=== PATIENT | male | born 2000 | race Caucasian/White ===

== ENCOUNTER 2023-06-11 06:30 | Inpatient (IN) | payer OTHER, SELFPAY ==
[2023-06-11] VITALS (13 sets, daily range): BP systolic 102–129; BP diastolic 59–94; PULSE 100–127; RESP 18–44; TEMP 36.5–39.1; O2SAT 88–98; BMI 22.1
--- NOTE | ~2023-06-11 | XR_ITS ---
EXAMINATION: XR CHEST CLINICAL INFORMATION: Follow-up pneumonia COMPARISON: CT angiogram chest from 06/11/2023 TECHNIQUE: Frontal view of the chest was obtained. FINDINGS: Bilateral low lung volumes. Similar distribution of multifocal consolidative opacities involving the right mid lung field and bilateral lower lung mike. No pneumothorax. Trachea is midline. Cardiac mediastinal silhouette is not enlarged. No large pleural effusion. Osseous structures are intact. Soft tissues are unremarkable. XR/XR chest 1V IMPRESSION: 1. Bilateral low lung volumes. 2. Similar distribution of multifocal consolidative opacities involving the right mid lung field and bilateral lower lung mike.
--- NOTE | 2023-06-11 07:00 | ED.SOB ---
HPI - SOB/Dyspnea General Chief Complaint: Dyspnea Stated Complaint: low oxygen, sob, diagnosed yesterday w/ pneumonia Time Seen by Provider: 06/11/23 06:49 Source: patient Mode of arrival: ambulatory Limitations: no limitations History of Present Illness HPI Narrative: 23-year-old male with no significant medical history presenting with shortness of breath, ongoing for the past 2-3 days was seen at urgent care yesterday and was told he has pneumonia. Or he also reports [place], 10 hour flight. Reports he has been having cough but he feels like he is coughing to clear his throat. Denies fevers, chills, nausea, vomiting, chest pain, headache, vision changes, dizziness, weakness. Related Data Allergies Allergy/AdvReac Type Severity Reaction Status Date / Time No Known Allergies Allergy Verified 06/11/23 06:39 Review of Systems Review of Systems: Constitutional : No Weight loss, No Fever, No Chills, No Fatigue, No Malaise ENT/Mouth : No sore throat, No Rhinorrhea Eyes: No Eye Pain, No Swelling, No Redness Cardiovascular : No Chest Pain, + SOB, No Dyspnea on Exertion, No Orthopnea, No Edema, No Palpitations Respiratory : No Cough, No Sputum, No Wheezing Gastrointestinal : No Nausea, No Vomiting, No Diarrhea, No Constipation, No abdominal Pain, No Hematochezia, No Melena Genitourinary : No Dysuria, No Urinary Frequency, No Hematuria, Musculoskeletal : No joint pain, No Myalgias, No Joint Swelling Skin : No Skin Lesions, No rash Neuro : No Weakness, No Numbness, No Dizziness, No Headache Psych : No Anxiety/Panic, No Depression All other systems reviewed and are negative Yes all other systems are reviewed and are negative [facility] Past Medical History Attestation statement: The following information was validated with the patient. Source: old records reviewed and nursing notes reviewed Onset Date is defined in the Problem List Problems that require an onset date and time if occurred within 24 hrs of arrival to the ED Aortic Dissection and Rupture; Neurologic impairment; Cardiopulmonary Arrest; Endotracheal Intubation; Insertion or Replacement of Mechanical Circulatory Assist Device Social History Social History Alcohol intake: current Smoked in Last 30 Days: Yes Use of substances other than those prescribed or required for medical reasons: No Advance Directives: No Advance Directives Information Provided: No Physical Exam Vital Signs: Vital Signs: Last Vital Signs Temp 102.3 F H 06/11/23 10:41 Pulse 126 H 06/11/23 10:41 Resp 44 H 06/11/23 10:41 BP 118/75 06/11/23 10:41 Pulse Ox 97 06/11/23 10:41 O2 Del Method Nasal Cannula 06/11/23 10:41 O2 Flow Rate 2 06/11/23 10:41 BMI result Body Mass Index 22.1 hypoxia noted Appearance: Alert.? Oriented X3.? No acute distress.? Head: Normocephalic, atraumatic, no step-offs or deformities Eyes: Pupils equal, round and reactive to light.? CVS: Normal heart rate and rhythm.? Pulses normal.? Respiratory: No respiratory distress.? Breath sounds diminished throughout .? Abdomen: Soft and nontender.? Skin: Skin warm and dry.? Normal skin color.? Normal skin turgor.? Extremities: No lower extremity edema.? No calf ttp. 5/5 strength to bilateral upper and lower extremities Back: No midline tenderness, no C-spine tenderness, full range of motion, no CVA tenderness bilaterally Neuro: Oriented X 3.? No motor deficit.? No sensory deficit. CN 2-12 intact Course Reevaluation(s) Reevaluation #1: Patient is noted to have an elevated white blood cell count 19.9, chemistry low sodium 132 receiving IV fluids lactic acid elevated 2.1 again receiving IV fluids, total bilirubin 1.2 likely secondary to infection, coags demonstrating an elevated D-dimer CTA ordered to rule out PE. Flu / COVID/ RSV pending. CTA pending. Time: 08:04 Reevaluation #2: Band count of 10. CTA with multi lobar pneumonia. Indeterminate for VTE Time: 09:56 Reevaluation #3: Patient admitted Time: 10:46 Medications Administered Generic Name Dose Route Start Last Admin Trade Name Freq PRN Reason Stop Dose Admin Acetaminophen 650 mg 06/11/23 09:55 06/11/23 10:33 Acetaminophen 325 Mg Tablet PO 650 mg Q6H PRN Administration fever Azithromycin 500 mg/ Sodium 250 mls @ 125 mls/hr 06/11/23 09:09 01/08/24 09:32 Chloride IV 06/11/23 11:08 125 mls/hr ONCE ONE Administration Discontinued Medications Generic Name Dose Route Start Last Admin Trade Name Devyn PRN Reason Stop Dose Admin Ceftriaxone Sodium 1 gm/ 50 mls @ 100 mls/hr 06/11/23 06:58 06/11/23 08:43 Sodium Chloride IV 06/11/23 07:27 Infused ONCE ONE Infusion Sodium Chloride 2,041.17 mls @ 2,041.17 mls/hr 06/11/23 06:58 06/11/23 09:36 Ns 30 ml/kg infuse over 1 hr (2041.17 ml) 06/11/23 07:57 Infused IV Infusion .Q1H STA Iohexol 65 ml 06/11/23 08:53 06/11/23 08:53 Iohexol 350 Mg/Ml 100 Ml Infus..Btl IV 06/11/23 08:54 65 ml ONCE ONE Administration Methylprednisolone Sodium Succinate 125 mg 06/11/23 09:08 06/11/23 09:32 Methylprednisolone Sod Succ 125 Mg/2 Ml Vial IVPUSH 06/11/23 09:09 125 mg ONCE ONE Administration Medical Decision Making Medical Decision Making MDM Narrative: 0700 23 year old male pesents w/ sob x few days told he had PNA yesterday at urgent care. Came back from [place] three days ago PE diminished BS b/l. 92% at rest. 86% with ambulation. History and physical exam concerning for pneumonia versus pulmonary embolism due to recent travel and sudden shortness of breath. Unlikely ACS, dissection. Other differentials include viral illness, bronchitis. At this time a sepsis alert was called overhead. And a sepsis focused exam was performed at the bedside. Plan- labs, imaging Differential Diagnosis Differential Diagnoses: The differential diagnosis associated with the presentation includes History and physical exam concerning for pneumonia versus pulmonary embolism due to recent travel and sudden shortness of breath. Unlikely ACS, dissection. Other differentials include viral illness, bronchitis. Admission/Observation Consideration of admission/observation: Escalation of care including admission/observation considered Consult Healthcare Provider Management of the patient was discussed with: Hospitalist Lab Data [facility] Lab Attestation statement: I reviewed the patient's lab results. 06/11/23 07:32 06/11/23 07:32 Labs: Lab Results 01/08/24 01/08/24 01/08/24 Range/Units 07:32 08:52 09:50 WBC 19.9 H (4.8-10.8) X10*3/uL RBC 4.10 L (4.60-5.80) X10*6/uL Hgb 12.9 L (14.0-18.0) g/dl Hct 36.3 L (42.0-52.0) % MCV 88.5 (80.0-98.0) fL MCH 31.5 (27.0-33.0) pg MCHC 35.5 (31.0-36.0) g/dl RDW 12.9 (11.0-16.0) % Plt Count 332 (160-400) X10*3/uL MPV 9.3 L (9.4-12.4) fL Immature Gran % (Auto) Cancelled Neut % (Auto) Cancelled Lymph % (Auto) Cancelled [place] % (Auto) Cancelled Eos % (Auto) Cancelled Baso % (Auto) Cancelled Lymph # (Auto) Cancelled [place] # (Auto) Cancelled Eos # (Auto) Cancelled Baso # (Auto) Cancelled Abs Immat Gran (auto) Cancelled Absolute Neuts (auto) Cancelled Absolute Nucleated RBC 0.000 (0.0-0.012) X10*3/uL Nucleated RBC % (auto) 0.0 (0.0-0.2) /100WBC Neutrophils % (Manual) 85 H (45-73) % Band Neutrophils % 10 H (3-5) % Lymphocytes % (Manual) 5 L (20-40) % Abs Neuts (Manual) 18.9 H (2.0-8.3) X10*3/uL Lymphocytes # (Manual) 1.0 L (1.2-4.9) X10*3/uL Toxic Vacuolation PRESENT Dohle Bodies PRESENT Platelet Estimate NORMAL (NORMAL) Plt Morphology Comment NORMAL RBC Morphology NOTED Spherocytes 1+ (0-2) /OIF [place]ale Cells 3+ (>5) /OIF Acanthocytes (Spur) 3+ (>5) /OIF Schistocytes 1+ (0-2) /OIF D-Dimer High Sensitivty 1191 NG/ML Sodium 132 L (135-145) mmol/L Potassium 3.7 (3.3-5.1) mmol/L Chloride 98 (96-108) mmol/L Carbon Dioxide 24 (22-29) mmol/L Anion Gap 14 (12-20) BUN 9 (9-16) mg/dL Creatinine 0.74 (0.5-1.4) mg/dL Estim Creat Clear Calc 146.8 Estimated GFR > 60 Random Glucose 104 (60-115) mg/dL Lactic Acid 2.1 H* (0.5-2.0) mmol/L Lactic Acid F/U @ 2Hr 1.7 (0.5-2.0) mmol/L Calcium 9.1 (8.4-10.2) mg/dL Magnesium 1.6 (1.6-2.6) mg/dL Total Bilirubin 1.2 H (0.0-1.0) mg/dL AST 21 (5-37) U/L ALT 15 (0-40) U/L Alkaline Phosphatase 99 (39-117) U/L Total Protein 5.9 L (6.5-8.0) g/dL Albumin 2.9 L (3.5-5.0) g/dL Urine Color Yellow Urine Appearance Clear Urine pH 7.0 (5.0-9.0) Ur Specific [place] <= 1.005 (1.005-1.025) Urine Protein Negative (Neg-Trace) mg/dL Urine Glucose (UA) Negative (Negative) mg/dL Urine Ketones Negative (Negative) mg/dL Urine Blood Negative (Negative) Urine Nitrite Negative (Negative) Ur Leukocyte Esterase Negative (Negative) Influenza Type A (PCR) NEGATIVE (Negative) Influenza Type B (PCR) NEGATIVE (Negative) RSV RNA Qual (PCR) NEGATIVE (Negative) SARS-CoV-2 RNA (RT-PCR) NEGATIVE (Negative) Independent Interpretation I performed an independent interpretation of an: EKG ( Ventricular rate of 121, SC normal, QRS normal, QT / QTC normal. EKG sinus tachycardia no ST elevations or inversions concerning for ischemia.) and CT Scan ( CT/CT angio chest PE protocol IMPRESSION: Suboptimal contrast bolus timing. No central or large segmental pulmonary embolus. Severe multifocal pneumonia. Possibly reactive mediastinal and bilateral hilar lymphadenopathy. Follow-up until resolution is advised. Hepatic steatosis. VTE: indeterm) Radiology Impression Discussion of test interpretation with radiology: I have reviewed the radiologist's reading. Prescription Management I considered prescription management with: Antibiotic Critical Care Time Critical Care Time Critical Care Time: Yes Total Critical Care Time: 45 Attestation: I attest to this time spent taking care of the patient, obtaining history, physical, reviewing labs, imaging, speaking to my attending, speaking to specialist. Discharge Plan Discharge Clinical Impression: Sepsis due to pneumonia Patient Disposition: Admitted As Inpatient
--- NOTE | 2023-06-11 07:10 | PC.NURSE ---
pt walked with pulseox. Pt came down to 86% while walking. Pt put on 2L of O2, O2 back up to 92%
--- NOTE | 2023-06-11 07:41 | PC.NURSE ---
Pt is a&ox4 coming in with sob for a couple of days with feversand chills. Pt reports being seen at urgent care yesterday and being diagnosed with PNA. Pt desated to 86% on RA upon ambulation, was placed on 2LT nc and is sating at 96%. Pt denies pain. Pt speaking in clear full sentences, crackles heard on lower bases of left side of lung. BC and labs sent. 20 left forearm.
[2023-06-11 07:42] LABS: Hematocrit 36.3 % (42.0-52.0); Hemoglobin 12.9 g/dl (14.0-18.0); Mean Corpuscular HGB Conc 35.5 g/dl (31.0-36.0); Mean Corpuscular Hemoglobin 31.5 pg (27.0-33.0); Mean Corpuscular Volume 88.5 fL (80.0-98.0); Mean Platelet Volume 9.3 fL (9.4-12.4); Platelet Count 332 X10*3/uL (160-400); Red Cell Distribution Width 12.9 % (11.0-16.0); White Blood Count 19.9 X10*3/uL (4.8-10.8)
[2023-06-11 07:48] LABS: D Dimer High Sensitivity 1191 NG/ML
[2023-06-11 07:58] LABS: Alanine Aminotransferase 15 U/L (0-40); Albumin Level 2.9 g/dL (3.5-5.0); Alkaline Phosphatase 99 U/L (39-117); Anion Gap 14 (12-20); Aspartate Amino Transferase 21 U/L (5-37); Bilirubin Total 1.2 mg/dL (0.0-1.0); Blood Urea Nitrogen 9 mg/dL (9-16); Calcium 9.1 mg/dL (8.4-10.2); Carbon Dioxide 24 mmol/L (22-29); Chloride 98 mmol/L (96-108); Creatinine Clr Calc Pharmacy 146.8; Estimated Glomerular Filt Rate > 60; Glucose Random 104 mg/dL (60-115); Magnesium 1.6 mg/dL (1.6-2.6); Potassium 3.7 mmol/L (3.3-5.1); Sodium 132 mmol/L (135-145); Total Protein 5.9 g/dL (6.5-8.0)
[2023-06-11 08:00] LABS: Lactic Acid 2.1 mmol/L (0.5-2.0)
[2023-06-11 08:35] LABS: Influenza A PCR NEGATIVE (Negative); Influenza B PCR NEGATIVE (Negative); Resp Syncy Virus RNA Qual PCR NEGATIVE (Negative); SARS COV2 PCR INHOUSE NEGATIVE (Negative)
[2023-06-11 08:37] LABS: Neutrophils Percent Manual 85 % (45-73)
[2023-06-11 08:39] LABS: Band Neutrophils Percent 10 % (3-5); Lymphocytes Percent Manual 5 % (20-40); Neutrophils Absolute Manual 18.9 X10*3/uL (2.0-8.3)
[2023-06-11 08:40] LABS: Acanthocytes 3+ (>5) /OIF; Burr Cells 3+ (>5) /OIF; Dohle Bodies PRESENT; Platelet Estimate NORMAL (NORMAL); Platelet Morphology Comment NORMAL; RBC Morphology NOTED; Schistocytes 1+ (0-2) /OIF; Spherocytes 1+ (0-2) /OIF; Toxic Vacuolation PRESENT
[2023-06-11 09:38] LABS: Reflex Lactate? Lactic Acid Added
--- NOTE | 2023-06-11 09:48 | PM.IMHP ---
History of Present Illness Date of Service: 06/11/23 Chief Complaint: sob, fever 23M PMH ADHD, presented with fever, sob. Patient traveled to [place] on 06/03/2024, several days later started to have flu-like symptoms. Myalgias, fevers, fatigue. Flew home and continued to be symptomatic. Started to have dry cough, shortness of breath. Pulse ox at home was in the mid 80s so came to ED. denies rash, abdominal pain, nausea vomiting diarrhea. In ED noted to have elevated WBCs, tachycardia, hypoxia. CTA showed bilateral pneumonia. Review of Systems Review of Systems: Yes all other systems are reviewed and are negative PMFSH Social History Alcohol intake: current Smoked in Last 30 Days: Yes Use of substances other than those prescribed or required for medical reasons: No Advance Directives: No Advance Directives Information Provided: No Meds Allergies Allergy/AdvReac Type Severity Reaction Status Date / Time No Known Allergies Allergy Verified 06/11/23 06:39 Active Medications: Current Medications Azithromycin 500 mg/ Sodium (Chloride) 250 mls @ 125 mls/hr IV ONCE ONE Stop: 06/11/23 11:08 Last Admin: 06/11/23 09:32 Dose: 125 mls/hr Physical Exam Vital Signs and Narrative: Vital Signs: Last Vital Signs Temp 98.5 F 06/11/23 09:37 Pulse 119 H 06/11/23 09:37 Resp 20 06/11/23 09:37 BP 113/94 H 06/11/23 09:37 Pulse Ox 95 06/11/23 09:37 O2 Del Method Nasal Cannula 06/11/23 09:37 O2 Flow Rate 1 06/11/23 09:37 BMI result Body Mass Index 22.1 General: AO X 3, dyspneic Resp: Crackles bilateral, some accessory muscles used CVS: S1,S2,RRR GI: soft, non tender, non distended Neuro: motor grossly intact, alert Psych: appropriate affect, appropriate insight Results Labs 06/11/23 07:32 06/11/23 07:32 Labs: Laboratory Results - last 24 hr 06/11/23 07:32 MCV 88.5 MCH 31.5 MCHC 35.5 RDW 12.9 Plt Count 332 MPV 9.3 L Immature Gran % (Auto) Cancelled Neut % (Auto) Cancelled Lymph % (Auto) Cancelled [place] % (Auto) Cancelled Eos % (Auto) Cancelled Baso % (Auto) Cancelled Lymph # (Auto) Cancelled [place] # (Auto) Cancelled Eos # (Auto) Cancelled Baso # (Auto) Cancelled Abs Immat Gran (auto) Cancelled Absolute Neuts (auto) Cancelled Absolute Nucleated RBC 0.000 Nucleated RBC % (auto) 0.0 Neutrophils % (Manual) 85 H Band Neutrophils % 10 H Lymphocytes % (Manual) 5 L Abs Neuts (Manual) 18.9 H Lymphocytes # (Manual) 1.0 L Toxic Vacuolation PRESENT Dohle Bodies PRESENT Platelet Estimate NORMAL Plt Morphology Comment NORMAL RBC Morphology NOTED Spherocytes 1+ (0-2) [place] Cells 3+ (>5) Acanthocytes (Spur) 3+ (>5) Schistocytes 1+ (0-2) D-Dimer High Sensitivty 1191 Anion Gap 14 Estim Creat Clear Calc 146.8 Estimated GFR > 60 Random Glucose 104 Lactic Acid 2.1 H* Calcium 9.1 Magnesium 1.6 Total Bilirubin 1.2 H AST 21 ALT 15 Alkaline Phosphatase 99 Total Protein 5.9 L Albumin 2.9 L Influenza Type A (PCR) NEGATIVE Influenza Type B (PCR) NEGATIVE RSV RNA Qual (PCR) NEGATIVE SARS-CoV-2 RNA (RT-PCR) NEGATIVE Imaging Radiologist's Impressions: Impressions Chest CTA 06/11/23 08:51 IMPRESSION: Suboptimal contrast bolus timing. No central or large segmental pulmonary embolus. Severe multifocal pneumonia. Possibly reactive mediastinal and bilateral hilar lymphadenopathy. Follow-up until resolution is advised. Hepatic steatosis. VTE: indeterminate Assessment and Plan (1) Pneumonia: Status: Acute Plan 23M PMH adhd presented with sob, fever Sepsis and acute hypoxic respiratory failure secondary to bilateral pneumonia inpatient with recent travel Empiric ceftriaxone and azithromycin Follow-up respiratory viral panel, HIV, id eval Wean O2 as tolerated Full code Patient with sepsis and hypoxia requiring O2 supplementation and IV antibiotics, due to severity of his illness he is likely to require at least 2 midnights inpatient Quality Stroke Does the patient have a stroke diagnosis?: No VTE Prior VTE?: No VTE Risk Level:: Medical - low VTE Device Contraindication: Treatment Not Indicated VTE Drug Contraindication: Treatment Not Indicated
--- NOTE | 2023-06-11 10:46 | PC.NURSE ---
Vs change inpatient provider Jose Narvaez aware and at bedside.
--- NOTE | 2023-06-11 11:36 | PHA.MEDREC ---
Pharmacy Consult ? Medication Reconciliation Pharmacy has completed the medication reconciliation. spoke with patient to confirm medications. Reports that he has not taken his adderall in a few days due to feeling under the weather.
--- NOTE | 2023-06-11 13:08 | PC.NURSE ---
Pt ambulated to restroom and desated to 82% RA[facility]
[2023-06-11] MEDS: Acetaminophen 325 MG TABLET 650 MG PO ×2 (16:32→22:24)
[2023-06-11] MEDS: traZODone HCL 50 MG TABLET PO (21:07)
--- NOTE | 2023-06-11 22:17 | W.PM.IDCN ---
History of Present Illness Data of Consult Service Date: 06/11/23 Requesting physician: Jose Narvaez Primary Care Provider: Unknown Physician HPI Reason for consult: pneumonia He presents with cough and chills. He has hypoxia likely last three to four days. Three days ago he arrived from [place] where he was staying with a friend for four days. He is not aware of anyone ill. He is MSM and doesnt appear to be on Prep but denies HIV. CXR/CT atypical pneumonia infiltrates in bat wing distribution. Review of Systems Review of Systems: Yes all other systems are reviewed and are negative PMFSH Family History Family history: reviewed and not pertinent Social History Social History Household Members: Family Housing: House Do you presently have visiting nurse or other home services: No Alcohol intake: current Patient Tobacco Use Status: Never used Tobacco Smoked in Last 30 Days: Yes e-Cigarette/Vaping Use: Currently Using Frequency of e-Cigarette/Vaping Use: daily Use of substances other than those prescribed or required for medical reasons: No Have you been hit, kicked, punched, or otherwise hurt by someone within the past year? If so, by whom?: No Do you feel safe in your current relationship?: Yes Is there a partner from a previous relationship who is making you feel unsafe now?: No Are you made to feel afraid or neglected: No Advance Directives: No Advance Directives Information Provided: No Do you have thoughts of harming others: None Do you have a plan to hurt others: No Plan Recently lost weight without trying: No Eating poorly because of decreased appetite: Yes Nutrition Risks: No Nutritional Risk Poor oral hygiene: No Meds Allergies Allergy/AdvReac Type Severity Reaction Status Date / Time No Known Allergies Allergy Verified 06/11/23 06:39 Active Medications: Current Medications Acetaminophen (Acetaminophen 325 Mg Tablet) 650 mg PO Q6H PRN PRN Reason: fever Last Admin: 06/11/23 16:32 Dose: 650 mg Amphetamine/Dextroamphetamine (Amphetamine Mixed Salts 10 Mg Tablet) 10 mg PO DAILY@1800 PRN PRN Reason: Drowsiness Amphetamine/Dextroamphetamine (Amphetamine Mixed Salts 20 Mg Tablet) 20 mg PO BID [place] Last Admin: 06/11/23 21:08 Dose: Not Given Fluoxetine HCl (Fluoxetine Hcl 20 Mg Capsule) 40 mg PO DAILY [facility] Ceftriaxone Sodium 1 gm/ (Sodium Chloride) 50 mls @ 100 mls/hr IV Q24H [facility] Doxycycline Hyclate 100 mg/ (Sodium Chloride) 250 mls @ 166.67 mls/hr IV Q12H [facility] Last Infusion: 06/11/23 13:50 Dose: Infused Fluconazole (Diflucan) 200 mg in 100 mls @ 100 mls/hr IV Q24H [facility] Last Infusion: 06/11/23 13:50 Dose: Infused Trimethoprim/Sulfamethoxazole (340 mg/ Dextrose) 521.25 mls @ 225 mls/hr IV Q8H [facility] Prednisone (Prednisone 20 Mg Tablet) 40 mg PO DAILY [facility] Sodium Chloride (0.9 % Sodium Chloride Flush 3 Ml Syringe) 3 ml IVFLUSH QSHIFT [facility] Last Admin: 06/11/23 16:25 Dose: 3 ml Trazodone HCl (Trazodone Hcl 50 Mg Tablet) 50 mg PO BEDTIME [facility] Last Admin: 06/11/23 21:07 Dose: 50 mg Home Medications Medication Instructions Recorded Confirmed Last Taken Type dextroamphetamine-amphetamine 10 1 tab PO DAILY@1800 PRN Drowsiness 06/11/23 06/11/23 Unknown History mg tablet dextroamphetamine-amphetamine 20 1 tab PO BID 06/11/23 06/11/23 Unknown History mg tablet fluoxetine 40 mg capsule 40 mg PO DAILY 06/11/23 06/11/23 Unknown History guaifenesin 1,200 mg tablet, 1,200 mg PO Q12H PRN Cough 06/11/23 06/11/23 Unknown History extended release 12 hr (Mucinex) trazodone 50 mg tablet 50 mg PO BEDTIME 06/11/23 06/11/23 Unknown History Physical Exam Vital Signs: Vital Signs: Last Vital Signs Temp 97.7 F 06/11/23 19:16 Pulse 100 06/11/23 19:16 Resp 18 06/11/23 19:16 BP 123/70 06/11/23 19:16 Pulse Ox 98 06/11/23 19:16 O2 Del Method Nasal Cannula 06/11/23 19:16 O2 Flow Rate 2 06/11/23 19:16 BMI result Body Mass Index 22.1 Const: General: cooperative HEENT: Head: Yes normal to inspection Face and sinus: Yes normal facial exam Mouth: Normal oral and palatal mucosa present Teeth and gingiva: dentition normal Eyes: General: appearance normal, both eyes and all related structures Pupils: Equal, round and reactive pupils present Resp: Effort & Inspection: decreased respiratory effort Cardio: Rate: regular rate Rhythm: regular rhythm GI: Palpation (GI): Soft to palpation and nontender : General: Yes no CVA tenderness Back/Spine/Pelvis: Back: no CVA tenderness Skin: General skin exam: no rashes or lesions noted Neuro: General: moves all extremities Cranial nerves: Yes Equal, round and reactive pupils present Extrem: General: Yes normal to inspection Psych: Appearance: grossly normal Results Labs 06/11/23 07:32 06/11/23 07:32 Labs: Short CBC 06/11/23 Range/Units 07:32 WBC 19.9 H (4.8-10.8) X10*3/uL Hgb 12.9 L (14.0-18.0) g/dl Hct 36.3 L (42.0-52.0) % Plt Count 332 (160-400) X10*3/uL BMP 06/11/23 07:32 Sodium 132 L Potassium 3.7 Chloride 98 Carbon Dioxide 24 BUN 9 Creatinine 0.74 Calcium 9.1 Liver Function 06/11/23 Range/Units 07:32 Total Bilirubin 1.2 H (0.0-1.0) mg/dL AST 21 (5-37) U/L ALT 15 (0-40) U/L Alkaline Phosphatase 99 (39-117) U/L Albumin 2.9 L (3.5-5.0) g/dL Urine 06/11/23 Range/Units 08:52 Urine Color Yellow Urine Appearance Clear Urine pH 7.0 (5.0-9.0) Ur Specific [place] <= 1.005 (1.005-1.025) Urine Protein Negative (Neg-Trace) mg/dL Urine Glucose (UA) Negative (Negative) mg/dL Microbiology Microbiology Results: Microbiology 06/11/23 07:32 Blood - Venous Blood Culture - Preliminary Prelim: GPC Gram Stain only 06/11/23 07:32 Blood - Venous Blood Culture - Preliminary Prelim: GPC Gram Stain only Assessment and Plan (1) Pneumonia: Status: Acute Foreign travel may or may not be relevant. He has risk in [place] from TB,hantavirus,Legionella and paracoccidiodes or coccidiomycosis,cryptococcus or histoplasmosis. He also may have nocardia, strep pneuonia or MRSA. HIV is concern Plan Nasal swab MRSA. Ceftriaxone, Doxycycline,antifungal and Bactrim PJP doses with steroids. Check HIV test.
[2023-06-12 03:07] VITALS: BP 114/61; PULSE 93; RESP 16; TEMP 36.6; O2SAT 94
[2023-06-12 07:26] LABS: Hematocrit 34.7 % (42.0-52.0); Hemoglobin 12.3 g/dl (14.0-18.0); Mean Corpuscular HGB Conc 35.4 g/dl (31.0-36.0); Mean Corpuscular Hemoglobin 31.3 pg (27.0-33.0); Mean Corpuscular Volume 88.3 fL (80.0-98.0); Mean Platelet Volume 9.9 fL (9.4-12.4); Platelet Count 392 X10*3/uL (160-400); Red Blood Count 3.93 X10*6/uL (4.60-5.80); Red Cell Distribution Width 13.1 % (11.0-16.0); White Blood Count 23.2 X10*3/uL (4.8-10.8)
[2023-06-12 07:29] VITALS: BP 115/62; PULSE 92; RESP 20; TEMP 36.6; O2SAT 96
[2023-06-12 07:41] LABS: Anion Gap 15 (12-20); Blood Urea Nitrogen 13 mg/dL (9-16); Calcium 8.9 mg/dL (8.4-10.2); Carbon Dioxide 23 mmol/L (22-29); Chloride 106 mmol/L (96-108); Creatinine Clr Calc Pharmacy 167.1; Estimated Glomerular Filt Rate > 60; Glucose Fasting 129 mg/dL (60-99); Potassium 3.5 mmol/L (3.3-5.1); Sodium 140 mmol/L (135-145)
[2023-06-12 08:00] LABS: HIV AB/AG Nonreactive (Nonreactive); HIV Num 1 0.04 S/CO (0.00-0.99)
[2023-06-12] MEDS: predniSONE 20 MG TABLET 40 MG PO (08:44)
[2023-06-12] MEDS: FLUoxetine HCl 20 MG CAPSULE 40 MG PO (08:44)
[2023-06-12] MEDS: guaiFENesin DM 100/10/5 ML 5 ML SYRUP PO ×4 (08:44→21:45)
--- NOTE | 2023-06-12 08:58 | HO.PM.IMPN ---
Subjective Subjective Date of Service: 06/12/23 Interval History: starting to feel better Physical Exam Vital Signs: Vital Signs: Last Vital Signs Temp 98 F 06/12/23 07:29 Pulse 92 06/12/23 07:29 Resp 20 06/12/23 07:29 BP 115/62 06/12/23 07:29 Pulse Ox 96 06/12/23 07:29 O2 Del Method Nasal Cannula 06/12/23 07:29 O2 Flow Rate 2 06/12/23 07:29 BMI result Body Mass Index 22.1 General: AO X 3, no acute distress Resp: Crackles bilateral, no accessory muscles used CVS: S1,S2,RRR GI: soft, non tender, non distended Neuro: motor grossly intact, alert Psych: appropriate affect, appropriate insight Objective Data Active Medications Acetaminophen (Acetaminophen 325 Mg Tablet) 650 mg PO Q6H PRN PRN Reason: fever Last Admin: 06/11/23 22:24 Dose: 650 mg Documented By: CHRISTIANO Amphetamine/Dextroamphetamine (Amphetamine Mixed Salts 10 Mg Tablet) 10 mg PO DAILY@1800 PRN PRN Reason: Drowsiness Amphetamine/Dextroamphetamine (Amphetamine Mixed Salts 20 Mg Tablet) 20 mg PO BID [facility] Last Admin: 06/12/23 08:44 Dose: Not Given Documented By: PRERNA Non-Admin Reason: Patient Refused Fluoxetine HCl (Fluoxetine Hcl 20 Mg Capsule) 40 mg PO DAILY [facility] Last Admin: 06/12/23 08:44 Dose: 40 mg Documented By: PRERNA Guaifenesin/Dextromethorphan (Guaifenesin Dm 100/10/5 Ml 5 Ml Syrup) 5 ml PO Q4H PRN PRN Reason: Cough Last Admin: 06/12/23 08:44 Dose: 5 ml Documented By: PRERNA Doxycycline Hyclate 100 mg/ (Sodium Chloride) 250 mls @ 166.67 mls/hr IV Q12H [facility] Last Infusion: 06/12/23 01:14 Dose: Infused Documented By: HATTIE Ceftriaxone Sodium 2 gm/ (Sodium Chloride) 50 mls @ 100 mls/hr IV Q24H [facility] Prednisone (Prednisone 20 Mg Tablet) 40 mg PO DAILY [facility] Last Admin: 06/12/23 08:44 Dose: 40 mg Documented By: PRERNA Sodium Chloride (0.9 % Sodium Chloride Flush 3 Ml Syringe) 3 ml IVFLUSH QSHIFT [facility] Last Admin: 06/12/23 08:46 Dose: 3 ml Documented By: PRERNA Trazodone HCl (Trazodone Hcl 50 Mg Tablet) 50 mg PO BEDTIME [facility] Last Admin: 06/11/23 21:07 Dose: 50 mg Documented By: CHRISTIANO Labs 06/12/23 05:52 06/12/23 05:52 Labs: Laboratory Results - last 24 hr 06/11/23 06/11/23 06/11/23 08:52 09:50 10:31 MCV MCH MCHC RDW Plt Count MPV Absolute Nucleated RBC Nucleated RBC % (auto) Anion Gap Estim Creat Clear Calc Estimated GFR Fasting Glucose Lactic Acid F/U @ 2Hr 1.7 Calcium Urine Color Yellow Urine Appearance Clear Urine pH 7.0 Ur Specific Wren <= 1.005 Urine Protein Negative Urine Glucose (UA) Negative Urine Ketones Negative Urine Blood Negative Urine Nitrite Negative Ur Leukocyte Esterase Negative Respiratory Panel Nash See Note Adenovirus (Rapid PCR) Not Detected B.pert (TEM-PCR) Not Detected B.parapertussis DNA PCR Not Detected C. pneumoniae DNA (PCR) Not Detected Coronavirus OC43 (PCR) Not Detected Coronavirus HKU1 (PCR) Not Detected Coronavirus 229E (PCR) Not Detected Coronavirus NL63 (PCR) Not Detected HIV 1&2 Ab/P24 Ag 4thGn Human Metapneumovir PCR Not Detected Influenza A (RT-PCR) Not Detected Influenza B (RT-PCR) Not Detected M. pneumoniae (PCR) Not Detected Parainfluenza 1 (PCR) Not Detected Parainfluenza 2 (PCR) Not Detected Parainfluenza 3 (PCR) Not Detected Parainfluenza 4 (PCR) Not Detected RSV (PCR) Not Detected Entero/Rhino (PCR) Not Detected SARS-CoV-2 RNA (RT-PCR) Not Detected 06/12/23 05:52 MCV 88.3 MCH 31.3 MCHC 35.4 RDW 13.1 Plt Count 392 MPV 9.9 Absolute Nucleated RBC 0.000 Nucleated RBC % (auto) 0.0 Anion Gap 15 Estim Creat Clear Calc 167.1 Estimated GFR > 60 Fasting Glucose 129 H Lactic Acid F/U @ 2Hr Calcium 8.9 Urine Color Urine Appearance Urine pH Ur Specific Wren Urine Protein Urine Glucose (UA) Urine Ketones Urine Blood Urine Nitrite Ur Leukocyte Esterase Respiratory Panel Nash Adenovirus (Rapid PCR) B.pert (TEM-PCR) B.parapertussis DNA PCR C. pneumoniae DNA (PCR) Coronavirus OC43 (PCR) Coronavirus HKU1 (PCR) Coronavirus 229E (PCR) Coronavirus NL63 (PCR) HIV 1&2 Ab/P24 Ag 4thGn Nonreactive Human Metapneumovir PCR Influenza A (RT-PCR) Influenza B (RT-PCR) M. pneumoniae (PCR) Parainfluenza 1 (PCR) Parainfluenza 2 (PCR) Parainfluenza 3 (PCR) Parainfluenza 4 (PCR) RSV (PCR) Entero/Rhino (PCR) SARS-CoV-2 RNA (RT-PCR) Microbiology Microbiology Results: Microbiology 06/11/23 07:32 Blood Culture - Preliminary Blood - Venous Prelim: GPC Gram Stain only 06/11/23 07:32 Blood Culture - Preliminary Blood - Venous Prelim: GPC Gram Stain only Assessment and Plan (1) Pneumonia: Status: Acute Plan 23M PMH adhd presented with sob, fever Sepsis and acute hypoxic respiratory failure secondary to bilateral pneumonia complicated by GPC in chains bacteremia continue ceftriaxone and doxy hiv negative, will dc diflucan and bactrim resp viral panel negative follow up cultures Wean O2 as tolerated Full code reason for continued hospitalization:awaiting cultures Quality Stroke Does the patient have a stroke diagnosis?: No VTE Prior VTE?: No VTE Risk Level:: Medical - low VTE Device Contraindication: Treatment Not Indicated VTE Drug Contraindication: Treatment Not Indicated
--- NOTE | 2023-06-12 13:18 | MHC.CM.PN ---
CM MET WITH PT AND MOTHER AT BEDSIDE PT LIVES ALONE IN [place] HE IS HERE VISITING FAMILY WHILE HE RECOVERS HE SAYS HE HAS NO DME OR SERVICES HE DOES HAVE A PCP BACK HOME PER HIS REPORT PT DECLINES TO COMPLETE A HCP DCP: RETURN TO FAMILY HOME VIA PRIVATE TRANSPORT
[2023-06-12] MEDS: Acetaminophen 325 MG TABLET 650 MG PO ×2 (13:48→21:45)
[2023-06-12 15:04] VITALS: BP 118/66; PULSE 84; RESP 18; TEMP 36.4; O2SAT 97
[2023-06-12 18:44] VITALS: BP 120/71; PULSE 93; RESP 18; TEMP 36.3; O2SAT 97
[2023-06-12] MEDS: traZODone HCL 50 MG TABLET PO (21:43)
[2023-06-13] VITALS (9 sets, daily range): BP systolic 114–130; BP diastolic 70–77; PULSE 77–100; RESP 16–19; TEMP 36.1–36.6; O2SAT 87–99
[2023-06-13] MEDS: guaiFENesin DM 100/10/5 ML 5 ML SYRUP PO ×4 (03:29→21:57)
--- NOTE | 2023-06-13 03:54 | PC.NURSE ---
At 0345 pt's O2 sat was 88% at 1L. Had pt sit up and do some deep breathing and O2 stayed at 88%. We were not able to get it to 90% until we put O2 at 4L. Dr. Zain Franco aware.
[2023-06-13 06:28] LABS: Hematocrit 31.1 % (42.0-52.0); Hemoglobin 11.2 g/dl (14.0-18.0); Mean Corpuscular Hemoglobin 31.5 pg (27.0-33.0); Mean Corpuscular Volume 87.4 fL (80.0-98.0); Mean Platelet Volume 9.6 fL (9.4-12.4); NRBC Pct Auto 0.1 /100WBC (0.0-0.2); Platelet Count 397 X10*3/uL (160-400); Red Blood Count 3.56 X10*6/uL (4.60-5.80); Red Cell Distribution Width 13.2 % (11.0-16.0); White Blood Count 15.6 X10*3/uL (4.8-10.8)
[2023-06-13 06:31] LABS: Alanine Aminotransferase 34 U/L (0-40); Albumin Level 2.5 g/dL (3.5-5.0); Alkaline Phosphatase 73 U/L (39-117); Anion Gap 12 (12-20); Aspartate Amino Transferase 45 U/L (5-37); Bilirubin Direct 0.1 mg/dL (0.0-0.5); Bilirubin Total 0.5 mg/dL (0.0-1.0); Blood Urea Nitrogen 16 mg/dL (9-16); Calcium 8.2 mg/dL (8.4-10.2); Carbon Dioxide 23 mmol/L (22-29); Chloride 108 mmol/L (96-108); Creatinine Clr Calc Pharmacy 169.8; Estimated Glomerular Filt Rate > 60; Glucose Fasting 103 mg/dL (60-99); Potassium 3.3 mmol/L (3.3-5.1); Sodium 140 mmol/L (135-145)
[2023-06-13] MEDS: Albuterol Sulfate (0.083%) 2.5 MG/3 ML VIAL.NEB INHALE ×3 (08:20→18:50)
[2023-06-13] MEDS: FLUoxetine HCl 20 MG CAPSULE 40 MG PO (08:24)
[2023-06-13] MEDS: Amphetamine Mixed Salts 20 MG TABLET PO ×2 (08:24→21:30)
[2023-06-13] MEDS: cefTRIAXone sodium 2 GM in 0.9 % Sodium Chloride 50 ML IV (09:54)
--- NOTE | 2023-06-13 11:28 | P.PNIM_ITS ---
Subjective Subjective Date of Service: 06/13/23 Interval History: Seen and evaluated this morning Hypoxic when weaning down O2 denies any fever or chills Review of Systems Review of Systems: Yes all other systems are reviewed and are negative Physical Exam 2 Vital Signs: Vital Signs: Last Vital Signs Temp 97.1 F 06/13/23 07:20 Pulse 89 06/13/23 08:16 Resp 16 06/13/23 08:16 BP 114/72 06/13/23 07:20 Pulse Ox 94 06/13/23 07:20 O2 Del Method Nasal Cannula 06/13/23 07:20 O2 Flow Rate 4 06/13/23 07:20 BMI result Body Mass Index 22.1 Const: Other: Constitutional : Awake, interactive, not in distress Neck : Normal inspection, Supple Cardiovascular : RRR, no JVP, no lower extremity edema Respiratory : fair bilateral air entry, no crackles, wheezes or rhonchi, On O2 supplement. Gastrointestinal: soft, lax, Normal bowel sounds, Non tender Skin : Warm, Dry Neurological : Alert & oriented x3, No focal deficit Objective Data Active Medications Acetaminophen (Acetaminophen 325 Mg Tablet) 650 mg PO Q6H PRN PRN Reason: fever Last Admin: 06/12/23 21:45 Dose: 650 mg Documented By: CHACHO Albuterol Sulfate (Albuterol Sulfate (0.083%) 2.5 Mg/3 Ml Vial.Neb) 2.5 mg INHALE Q4H PRN PRN Reason: Shortness of Breath/Wheezing Last Admin: 06/13/23 08:20 Dose: 2.5 mg Documented By: JONATAN Amphetamine/Dextroamphetamine (Amphetamine Mixed Salts 10 Mg Tablet) 10 mg PO DAILY@1800 PRN PRN Reason: Drowsiness Amphetamine/Dextroamphetamine (Amphetamine Mixed Salts 20 Mg Tablet) 20 mg PO BID [facility] Last Admin: 06/13/23 08:24 Dose: 20 mg Documented By: HOWIE Fluoxetine HCl (Fluoxetine Hcl 20 Mg Capsule) 40 mg PO DAILY [facility] Last Admin: 06/13/23 08:24 Dose: 40 mg Documented By: HOWIE Guaifenesin/Dextromethorphan (Guaifenesin Dm 100/10/5 Ml 5 Ml Syrup) 5 ml PO Q4H PRN PRN Reason: Cough Last Admin: 06/13/23 03:29 Dose: 5 ml Documented By: CHACHO Ceftriaxone Sodium 2 gm/ (Sodium Chloride) 50 mls @ 100 mls/hr IV Q24H [facility] Last Infusion: 06/13/23 10:45 Dose: Infused Documented By: HOWIE Sodium Chloride (0.9 % Sodium Chloride Flush 3 Ml Syringe) 3 ml IVFLUSH QSHIFT [facility] Last Admin: 06/13/23 09:52 Dose: 3 ml Documented By: HOWIE Trazodone HCl (Trazodone Hcl 50 Mg Tablet) 50 mg PO BEDTIME [facility] Last Admin: 06/12/23 21:43 Dose: 50 mg Documented By: CHACHO Labs 06/13/23 06:00 06/13/23 06:00 Labs: Laboratory Results - last 24 hr 06/13/23 06:00 MCV 87.4 MCH 31.5 MCHC 36.0 RDW 13.2 Plt Count 397 MPV 9.6 Absolute Nucleated RBC 0.020 H Nucleated RBC % (auto) 0.1 Anion Gap 12 Estim Creat Clear Calc 169.8 Estimated GFR > 60 Fasting Glucose 103 H Calcium 8.2 L D Total Bilirubin 0.5 Direct Bilirubin 0.1 AST 45 H ALT 34 Alkaline Phosphatase 73 Total Protein 5.0 L Albumin 2.5 L Microbiology Microbiology Results: Microbiology 06/11/23 07:32 Blood Culture - Final Blood - Venous Streptococcus pneumoniae 06/11/23 07:32 Blood Culture - Final Blood - Venous Streptococcus pneumoniae Assessment and Plan (1) Pneumonia: Status: Acute (2) Bacteremia due to Streptococcus pneumoniae: Status: Acute Plan 23M PMH adhd presented with sob, fever Sepsis and acute hypoxic respiratory failure secondary to bilateral pneumonia complicated by strep Pneumoniae bacteremia follow up repeated cultures continue ceftriaxone and doxy hiv negative resp viral panel negative Wean O2 as tolerated Full code reason for continued hospitalization:awaiting cultures Quality Stroke Does the patient have a stroke diagnosis?: No VTE Prior VTE?: No VTE Risk Level:: Medical - low VTE Device Contraindication: Treatment Not Indicated VTE Drug Contraindication: Treatment Not Indicated
[2023-06-13] MEDS: Acetaminophen 325 MG TABLET 650 MG PO ×2 (15:32→21:30)
--- NOTE | 2023-06-13 16:04 | MHC.CM.PN ---
Per MD rounds no discharge today. DP home self care. Family will provide transport home.
[2023-06-13] MEDS: traZODone HCL 50 MG TABLET PO (21:29)
[2023-06-14 04:00] VITALS: BP 133/83; PULSE 102; RESP 18; TEMP 36.6; O2SAT 96
[2023-06-14] MEDS: guaiFENesin DM 100/10/5 ML 5 ML SYRUP PO ×3 (06:40→14:29)
[2023-06-14 07:12] LABS: Hematocrit 32.4 % (42.0-52.0); Hemoglobin 11.2 g/dl (14.0-18.0); Mean Corpuscular HGB Conc 34.6 g/dl (31.0-36.0); Mean Corpuscular Hemoglobin 30.9 pg (27.0-33.0); Mean Corpuscular Volume 89.3 fL (80.0-98.0); Mean Platelet Volume 9.3 fL (9.4-12.4); Platelet Count 420 X10*3/uL (160-400); Red Blood Count 3.63 X10*6/uL (4.60-5.80); Red Cell Distribution Width 13.6 % (11.0-16.0); White Blood Count 11.6 X10*3/uL (4.8-10.8)
[2023-06-14 07:36] LABS: Anion Gap 10 (12-20); Blood Urea Nitrogen 8 mg/dL (9-16); Calcium 7.9 mg/dL (8.4-10.2); Carbon Dioxide 27 mmol/L (22-29); Chloride 105 mmol/L (96-108); Creatinine Clr Calc Pharmacy 181.1; Estimated Glomerular Filt Rate > 60; Glucose Random 81 mg/dL (60-115); Potassium 3.7 mmol/L (3.3-5.1); Sodium 138 mmol/L (135-145)
[2023-06-14 07:50] VITALS: BP 125/74; PULSE 84; RESP 18; TEMP 36.4; O2SAT 97
[2023-06-14 09:47] VITALS: O2SAT 97
[2023-06-14] MEDS: Amphetamine Mixed Salts 20 MG TABLET PO (09:47)
[2023-06-14] MEDS: FLUoxetine HCl 20 MG CAPSULE 40 MG PO (09:47)
[2023-06-14] MEDS: cefTRIAXone sodium 2 GM in 0.9 % Sodium Chloride 50 ML IV (10:00)
--- NOTE | 2023-06-14 11:17 | PM.DS ---
DS: Providers Provider Date of Service: 06/14/23 Date of admission: 06/11/23 10:56 Primary care physician: Unknown Physician Consults: 06/11/23 09:45 Consult to Infectious Diseases [place]ine [place] [facility] [place] Reason for consultation: atypical pna post travel DS: Diagnosis Discharge Diagnosis (1) Pneumonia: Status: Acute (2) Bacteremia due to Streptococcus pneumoniae: Status: Acute (3) Hypoxemia: Status: Acute DS: Summary Hospital Course Hospital Course: Admission note HPI 23M PMH ADHD, presented with fever, sob. Patient traveled to [place] on 06/03/2024, several days later started to have flu-like symptoms. Myalgias, fevers, fatigue. Flew home and continued to be symptomatic. Started to have dry cough, shortness of breath. Pulse ox at home was in the mid 80s so came to ED. denies rash, abdominal pain, nausea vomiting diarrhea. In ED noted to have elevated WBCs, tachycardia, hypoxia. CTA showed bilateral pneumonia. Hospital course The patient was treated for sepsis and acute hypoxic respiratory failure secondary to bilateral pneumonia complicated by streptococcus Pneumoniae bacteremia. Treated with CEftriaxone and Doxycycline before the cultures were finalized. repeated cultures remained negative. Discussed with ID who recommended to finish 2 weeks of Ceftin. HIV negative. Weaned off O2 and was able to ambulate on room air with no reported dyspnea. Continue Ceftin as prescribed Cough medicine, Tylenol\Advil as needed Come back to the hospital for any fever or breathing problems Time Attestation Discharge coordination time: Greater than 30 minutes Quality: Safe Use of Opioids Does Pt have an Active Cancer Diagnosis on the Problem List?: No Quality: Stroke Does the patient have a stroke diagnosis?: No Physical Exam Vital Signs: Vital Signs: Last Vital Signs Temp 97.5 F 06/14/23 07:50 Pulse 84 06/14/23 07:50 Resp 18 06/14/23 07:50 BP 125/74 06/14/23 07:50 Pulse Ox 97 06/14/23 09:47 O2 Del Method Room Air 06/14/23 09:47 O2 Flow Rate 1 06/14/23 07:50 Oxygen Flow Rate 2 06/13/23 11:30 BMI result Body Mass Index 22.1 Const: Other: Constitutional : Awake, interactive, not in distress Neck : Normal inspection, Supple Cardiovascular : RRR, no JVP, no lower extremity edema Respiratory : fair bilateral air entry, basal fine crackles Gastrointestinal: soft, lax, Normal bowel sounds, Non tender Skin : Warm, Dry Neurological : Alert & oriented x3, No focal deficit DS: Data Data Completed and Pending Labs on day of discharge: Laboratory Results - last 24 hr 06/14/23 05:52 WBC 11.6 H RBC 3.63 L Hgb 11.2 L Hct 32.4 L MCV 89.3 MCH 30.9 MCHC 34.6 RDW 13.6 Plt Count 420 H MPV 9.3 L Absolute Nucleated RBC 0.000 Nucleated RBC % (auto) 0.0 Sodium 138 Potassium 3.7 Chloride 105 Carbon Dioxide 27 Anion Gap 10 L BUN 8 L Creatinine 0.60 Estim Creat Clear Calc 181.1 Estimated GFR > 60 Random Glucose 81 Calcium 7.9 L Preliminary micro results at discharge 06/13/23 06:00 Blood Culture - Preliminary Blood - Venous No growth after 24 hours. 06/13/23 06:00 Blood Culture - Preliminary Blood - Venous No growth after 24 hours. Imaging Chest x-ray: Radiologist's impression: ITS Impressions Chest CTA 06/11/23 08:51 IMPRESSION: Suboptimal contrast bolus timing. No central or large segmental pulmonary embolus. Severe multifocal pneumonia. Possibly reactive mediastinal and bilateral hilar lymphadenopathy. Follow-up until resolution is advised. Hepatic steatosis. VTE: indeterminate Chest X-Ray 06/14/23 09:17 IMPRESSION: 1. Bilateral low lung volumes. 2. Similar distribution of multifocal consolidative opacities involving the right mid lung field and bilateral lower lung mike. Discharge Plan Discharge Anticipated Discharge Date/Time: 06/14/23 11:07 Patient Disposition: Home, Self-Care Discharge Diagnosis: Pneumonia Streptococcus bacteremia Referrals: Physician,Unknown J [Primary Care Provider] - 1 Week Discharge Medications: New cefuroxime axetil 500 mg tablet 500 mg PO BID Qty: 24 0RF dextromethorphan-guaifenesin 10-100 mg/5 mL Syrup 5 ml PO Q4H PRN (Reason: Cough) Qty: 237 1RF Continued fluoxetine 40 mg capsule 40 mg PO DAILY trazodone 50 mg tablet 50 mg PO BEDTIME dextroamphetamine-amphetamine 10 mg tablet 1 tab PO DAILY@1800 PRN (Reason: Drowsiness) dextroamphetamine-amphetamine 20 mg tablet 1 tab PO BID Rx Instructions: qam and around noon guaifenesin [Mucinex] 1,200 mg Tablet Extended Release 12hr 1,200 mg PO Q12H PRN (Reason: Cough) Diet: Advance to usual diet Activity on Discharge: As tolerated Stand Alone Forms: Patient Portal Discharge page Care Plan Goals: Read below Health Concerns: Read below Plan of Treatment: Read below Assessment: You were treated for lung infection complicated with streptococcus bacteremia. Treated with IV antibiotics with good response over the course of hospital stay as you were weaned off Oxygen. Continue Ceftin as prescribed Cough medicine, Tylenol\Advil as needed Come back to the hospital for any fever or breathing problems
[2023-06-14 11:25] VITALS: O2SAT 85
[2023-06-14 11:28] VITALS: O2SAT 88
[2023-06-14 11:30] VITALS: O2SAT 92
--- NOTE | 2023-06-14 11:36 | MHC.CM.PN ---
PT WILL DC HOME TODAY WITH NO SERVICES VIA FAMILY TRANSPORT
[2023-06-14] MEDS: Acetaminophen 325 MG TABLET 650 MG PO (13:37)
[2023-06-15 13:39] LABS: IgA 127 mg/dL (47-310); IgG 509 mg/dL (600-1640); IgM 73 mg/dL (50-300)
[2023-06-16 22:48] LABS: Strep Pneumo Ag urine Detected (Not Detected)
[2023-06-17 07:49] LABS: Legionella Ag Urine Not Detected (Not Detected)
== END 2023-06-14 15:11 | disposition home or self-care (01) | DRG 720 ==
LOC: HO.ED 09:53 → HO.EDOVER 10:56 → HO.S3 15:11
PROVIDERS: Physician Assistant; Admitting Provider Internal Medicine; Emergency Provider Emergency Medicine; Visit Provider Student in an Organized Health Care Education/Training Program
DX: A41.9 Sepsis, unspecified organism (principal); J96.01 Acute respiratory failure with hypoxia; F90.9 Attention-deficit hyperactivity disorder, unspecified type; B95.3 Streptococcus pneumoniae as the cause of diseases classified elsewhere; Z20.822 Contact with and (suspected) exposure to COVID-19; Z79.899 Other long term (current) drug therapy
CPT/HCPCS: 0241U; 36415; 71045; 71275; 80048; 80053; 80076; 81003; 82784; 83605; 83735; 85007; 85027; 85379; 87040; 87077; 87205; 87389; 87449; 87633; 87899; 93005; 94640; 99285; J0456; J0696; J1450; J2930; Q9967

== ENCOUNTER → 2023-06-11 06:59 | Outpatient (BNV) | payer OTHER, SELFPAY | PROVIDERS: Admitting Provider Internal Medicine; Emergency Provider Emergency Medicine; Visit Provider Internal Medicine Cardiovascular Disease | DX: R00.0 Tachycardia, unspecified (principal) | CPT/HCPCS: 93010 ==

== ENCOUNTER → 2023-06-11 07:55 | Outpatient (BNV) | payer OTHER, SELFPAY | PROVIDERS: Emergency Provider Emergency Medicine; Visit Provider Internal Medicine | DX: J18.9 Pneumonia, unspecified organism (principal); R78.81 Bacteremia; B95.3 Streptococcus pneumoniae as the cause of diseases classified elsewhere; R09.02 Hypoxemia | CPT/HCPCS: 99223; 99232; 99233; 99239 ==

== ENCOUNTER → 2023-06-11 10:56 | Outpatient (BNV) | payer OTHER, SELFPAY | PROVIDERS: Admitting Provider Internal Medicine; Emergency Provider Emergency Medicine; Visit Provider Internal Medicine | DX: J18.9 Pneumonia, unspecified organism (principal) | CPT/HCPCS: 99222 ==

== ENCOUNTER 2023-06-19 14:22 | Outpatient (REF) | payer OTHER, SELFPAY ==
--- NOTE | ~2023-06-19 | XR_ITS ---
EXAMINATION: XR CHEST CLINICAL INFORMATION: Pneumonia. COMPARISON: 06/14/2023 TECHNIQUE: 2 views of the chest were obtained. FINDINGS: Continued areas of consolidation. Some increased consolidation in the left mid to lower lung zone, once again volume loss. Findings also suggest effusion which may be loculated on the left. On the right, continued consolidation in the right midlung zone showing some increased aeration. Increased aeration of infiltrate at the right base but still significant infiltrates remain. The cardiac silhouette is comparable. The hilar structures are limited in evaluation due to infiltrates radiating to the hilar regions. XR/XR chest 2V IMPRESSION: Once again significant areas of infiltrate are seen left and right lung as described. On the left, I suspect accompanying effusion which could be loculated and there is some increasing consolidation at the left base. On the right, as described some increased aeration of right mid and lower lobe infiltrates. Better lung expansion on this study. Continued followup recommended.
[2023-06-19 15:22] LABS: MANUAL DIFF FLAG NO
[2023-06-19 15:55] LABS: Basophils Percent Auto 0.3 % (0-2); Eosinophils Percent Auto 0.3 % (0-4); Hematocrit 39.2 % (42.0-52.0); Hemoglobin 13.1 g/dl (14.0-18.0); Imm Gran Abs Auto 0.09 X10*3/uL (0.00-0.03); Imm Gran Pct Auto 0.8 % (0.0-0.4); Mean Corpuscular HGB Conc 33.4 g/dl (31.0-36.0); Mean Corpuscular Hemoglobin 31.6 pg (27.0-33.0); Mean Corpuscular Volume 94.7 fL (80.0-98.0); Mean Platelet Volume 9.4 fL (9.4-12.4); Monocytes Absolute Auto 0.7 X10*3/uL (0.1-1.2); Neutrophils Percent Auto 75.6 % (45-73); Platelet Count 764 X10*3/uL (160-400); Red Blood Count 4.14 X10*6/uL (4.60-5.80)
== END 2023-06-19 14:23 | disposition home or self-care (01) ==
LOC: HO.XRAY 14:22
PROVIDERS: Visit Provider Internal Medicine
DX: J18.9 Pneumonia, unspecified organism (principal); Q67.8 Other congenital deformities of chest
CPT/HCPCS: 36415; 71046; 85025

== ENCOUNTER 2023-06-19 14:22 | Outpatient (AMB) | payer OTHER, SELFPAY ==
[2023-06-19 14:27] VITALS: BP 102/58; PULSE 101; O2SAT 97; BMI 19.8
--- NOTE | 2023-06-19 14:27 | A.OFFVIS_ITS ---
Intake Vital Signs 06/19/23 14:27 Height 5 ft 9 in Weight 134 lb BMI 19.8 BP 102/58 L Blood Pressure Location Lt brachial Position Sitting Pulse 101 H Pulse Source Pulse Oximeter Pulse Oximetry (%) 97 Oxygen Delivery Method Room Air Intake Visit Reasons: S/p hospital admit - ok per dr cuba Intake Note: pt is here for hospital and states , he is feeling pretty good, but the has been having issues in all 4 corners of pain in the lower chest area, and also hurting to cough, and shallow breaths all day today, and he has experiencing some issues with ears feeling blocked. cough is non-productive and some production at times, no color. at this time but he cannot hard like he wants to. Would like to fly home by the end of the week. Allergies No Known Allergies Allergy (Verified 06/19/23 14:57) Medication List - Last Reconciled 06/19/23 by Ines Cuba MD albuterol sulfate 90 mcg/actuation 2 inhalations inhalation Q6H PRN cefuroxime axetil 500 mg PO BID dextroamphetamine-amphetamine 10 mg 1 tab PO DAILY@1800 PRN dextroamphetamine-amphetamine 20 mg 1 tab PO BID dextromethorphan-guaifenesin 10-100 mg/5 mL 5 mL PO Q4H PRN fluoxetine 40 mg PO DAILY guaifenesin ER (Mucinex) 1,200 mg PO Q12H PRN trazodone 50 mg PO BEDTIME Do you need a note to return to daycare/school/sports/work: No HPI S/p hospital admit - ok per dr cuba HPI Details 23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 LAST WEEK HE WAS ADMITTED TO [facility] BECAUSE OF CHEST DISCOMFORT FEVER AND SHORTNESS OF BREATH. HE WAS FOUND TO HAVE MULTILOBAR PNEUMONIA. SAYS BLOOD CULTURES POSITIVE FOR STREP PNEUMONIA, HE WAS TREATED WITH THE IV CEFTRIAXONE AND DOXYCYCLINE. DISCHARGED ON 06/13, ON ORAL CEFUROXIME 500 MG B.I.D.. AT THE TIME OF DISCHARGE HIS BLOOD CULTURES WERE NEGATIVE. HE HAD MODERATE LEUKOCYTOSIS WHICH HAD IMPROVED BY THE TIME OF DISCHARGE. SINCE HIS DISCHARGE FROM THE HOSPITAL HE CONTINUES TO HAVE MILD AMOUNT OF COUGH WHICH IS MOSTLY NONPRODUCTIVE, HE CONTINUES TO HAVE SOME DISCOMFORT ACROSS THE LOWER CHEST ON TAKING DEEP BREATHS. HE HAS HAD NO FEVER OR CHILLS, OR SHORTNESS OF BREATH. PAST HISTORY HE HAS HAD INTERMITTENT NASAL CONGESTION AND HAS USED SALINE SPRAY DECONGESTANTS OFF AND ON. HE HAS DIAGNOSIS OF ADHD, AND MILD DEPRESSION. HE DENIES USING ANY ILLICIT DRUGS OR DRINKING ALCOHOL. HE IS SINGLE AND TRAVELS FREQUENTLY BECAUSE HE WORKS FOR [employer]. [facility] Medical History (Updated 06/19/23 @ 15:07 by Ines Cuba MD) Deformity, chest wall, congenital Social History Household Members: Family Housing: House Do you presently have visiting nurse or other home services: No Alcohol intake: current Patient Tobacco Use Status: Never used Tobacco e-Cigarette/Vaping Use: Currently Using service: No Review of Systems Const All systems reviewed & are unremarkable except as noted in HPI and below Eyes Reports no additional complaints ENT Reports nasal congestion (OFF AND ON) Card Reports no additional complaints Resp Reports as per HPI GI Reports no additional complaints Reports no additional complaints Musc Reports no additional complaints Skin/Breast Reports system reviewed and no additional complaints, except as documented Neuro Reports no additional complaints Psych Reports depression and Reports other (ADHD ) Endo Reports no additional complaints Matthew/Lymph Reports no additional complaints Aller/Immun Reports no additional complaints Physical Exam Vital Signs: Last Vital Signs Pulse 101 H 06/19/23 14:27 BP 102/58 L 06/19/23 14:27 Pulse Ox 97 06/19/23 14:27 Oxygen Delivery Method Room Air 06/19/23 14:27 BMI result Body Mass Index 19.8 Const General: healthy appearing, comfortable, no acute distress, alert and awake Orientation/consciousness: patient oriented x3 HEENT Head: Yes normal to inspection General nose exam: No nasal polyps present and No nasal discharge present Face and sinus: Yes sinuses nontender Mouth: oropharynx normal Throat: Yes posterior oropharynx normal Eyes General: appearance normal, both eyes and all related structures Neck Neck: Yes normal visual inspection, Yes no lymphadenopathy, Yes trachea midline and Yes no JVD Thyroid: Thyroid normal Chest Other: 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 Chest palpation & inspection: abnormal inspection of the chest Resp Effort & Inspection: normal respiratory effort Auscultation: clear to auscultation bilaterally, no crackles and no wheezes Cardio Palpation: normal PMI Rate: regular rate Rhythm: regular rhythm Heart sounds: no gallops and no murmurs Peripheral pulses: Peripheral pulses 2+ throughout GI Palpation (GI): Soft to palpation, nontender, No hepatosplenomegaly present and no masses Auscultation: normal bowel sounds Back/Spine/Pelvis Thoracic/Lumbar Spine: Thoracic/lumbar scoliosis (DEXTROSCOLIOSIS) Skin General skin exam: no rashes or lesions noted Neuro General: patient oriented x3 and no focal motor deficits Cranial nerves: Yes CN's II-XII intact bilaterally Extrem General: Yes normal to inspection, Yes no clubbing, cyanosis or edema and Yes no calf tenderness Psych Appearance: grossly normal and well kempt Speech and movement: Normal speech and movement present Results Reviewed Results Reviewed: LAB AND CHEST X-RAY WELL CT SCAN OF THE CHEST ARE REVIEWED. HOSPITAL COURSE REVIEWED Assessment & Plan Assessment & Plan (1) Pneumonia: Comment: HE HAD MULTILOBAR PNEUMONIA, SECONDARY TO STREPTOCOCCUS PNEUMONIA, WITH BACTEREMIA. MUCH IMPROVED AND . CLINICALLY RESOLVED Code(s): J18.9 - Pneumonia, unspecified organism Plan: REPEAT CHEST X-RAY FOR FOLLOW-UP CBC WITH DIFF FOR FOLLOW-UP. COMPLETE THE COURSE OF CEFUROXIME. (2) Deformity, chest wall, congenital: Comment: HE HAS MILD DEXTROSCOLIOSIS AND BARREL-SHAPED CHEST, ESPECIALLY ACROSS THE LOWER PART OF THE CHEST. Code(s): Q67.8 - Other congenital deformities of chest Plan: EXPLAINED TO THE PATIENT AND HIS MOM. THIS IS A CONGENITAL DEFORMITY. NOT MUCH TO DO. HE COULD HAVE NONSPECIFIC DISCOMFORT IN THE LOWER CHEST CONTINUE TO DO DEEP BREATHING EXERCISES WITH INCENTIVE SPIROMETRY. Orders: Orders Complete Blood Count Auto Diff Today J18.9 - Pneumonia, unspecified organism XR chest 2V Today J18.9 - Pneumonia, unspecified organism Coding Level of Care Code Est Pt Level 4 (59001) Diagnoses Pneumonia J18.9 Deformity, chest wall, congenital Q67.8
== END 2023-06-19 14:54 | disposition home or self-care (01) ==
PROVIDERS: Visit Provider Internal Medicine
DX: J18.9 Pneumonia, unspecified organism (principal); Q67.8 Other congenital deformities of chest
CPT/HCPCS: 99214